=== PATIENT | male | born 1995 | race Caucasian/White ===

== ENCOUNTER 2017-05-30 15:55 | Inpatient (IN) | payer OTHER ==
[2017-05-30] MEDS ORDERED: ACETAMINOPHEN 1000 MG/100 ML VIAL (NON FORMULARY) IVPB ONE (16:47)
[2017-05-30] MEDS ORDERED: ACETAMINOPHEN INJECTION 100 ML IVPB ONE (16:50)
[2017-05-30 17:33] LABS: BASO % 0.2 % (0-2.0); EOS % 0.5 % (0-4.5); HEMATOCRIT 44.4 % (35.4-49); HEMOGLOBIN 14.2 GM/dL (11.7-16.9); LYMPH % 17.2 % (8-40); MCHC 32.1 g/dl (32.0-35.9); MEAN PLT VOLUME 9.2 fl (7.5-11.1); MONO % 6.1 % (3.8-10.2); PLATELET COUNT 232 K/MM3 (134-434); RBC 5.48 M/mm3 (4.00-5.60); RDW 13.7 % (11.9-15.9); WHITE BLOOD COUNT 15.2 K/mm3 (4.0-10.0)
[2017-05-30 17:41] LABS: URINE APPEARANCE CLEAR; URINE BILIRUBIN NEGATIVE (NEGATIVE); URINE BLOOD NEGATIVE (NEGATIVE); URINE COLOR LTYELLOW; URINE GLUCOSE (UA) NEGATIVE (NEGATIVE); URINE KETONE NEGATIVE (NEGATIVE); URINE LEUK ESTERASE NEGATIVE (NEGATIVE); URINE NITRITE NEGATIVE (NEGATIVE); URINE PROTEIN NEGATIVE (NEGATIVE)
[2017-05-30 17:49] LABS: INR 1.07 (0.82-1.09); PROTHROMBIN TIME (PATIENT) 12.1 SEC (9.98-11.88)
[2017-05-30 17:52] LABS: ACTIVATED PTT 30.3 SECONDS (26.9-34.4)
[2017-05-30 18:22] LABS: ALBUMIN 4.3 g/dl (3.4-5.0); ANION GAP 7 (8-16); BILIRUBIN,TOTAL 0.3 mg/dL (0.2-1.0); BLOOD UREA NITROGEN 14 mg/dL (7-18); CALCIUM 9.1 mg/dL (8.5-10.1); CHLORIDE 104 mmol/L (98-107); CO2 29 mmol/L (21-32); CREATININE 0.8 mg/dL (0.7-1.3); GLUCOSE,RANDOM 74 mg/dL (74-106); POTASSIUM 4.1 mmol/L (3.5-5.1); SGOT/AST 15 U/L (15-37); SGPT/ALT 26 U/L (12-78); SODIUM 140 mmol/L (136-145)
[2017-05-30 18:23] LABS: ALK PHOS 117 U/L (45-117)
--- NOTE | 2017-05-30 19:09 | PDOC ---
History of Present Illness - General Chief Complaint: Pain, Acute Stated Complaint: PAIN Time Seen by Provider: 05/30/17 16:18 - History of Present Illness Initial Comments: 05/30/17 19:08 "The patient is a 21 year old male, with no significant past medical history who presents to the emergency department with right sided abdominal pain for about 4 days. The patient reports his pain started as a diffuse tenderness but the pain is now localized at his RLQ. He ranks his pain a 6/10 with intermittent episodes of 10/10 in pain intensity. He also notes having subjective fevers. He denies any recent chills, headache or dizziness. He denies any recent nausea, vomit, diarrhea or constipation. He denies any recent chest pain or shortness of breath. He denies any recent dysuria, frequency, urgency or hematuria. No scrotal masses or pain. Allergies: NKA Past surgical history: None reported. Social History: Nonsmoker. Denies EtOH use and recreational drug use. " Past History - Past Medical History Allergies/Adverse Reactions: Allergies Allergy/AdvReac Type Severity Reaction Status Date / Time No Known Allergies Allergy Verified 05/30/17 16:03 Home Medications: Ambulatory Orders Oxycodone HCl/Acetaminophen [Percocet 5-325 mg Tablet] 1 tab PO Q4H PRN #20 tablet MDD 6 05/31/17 CVA: No COPD: No Thyroid Disease: No - Immunization History Immunization Up to Date: Yes - Suicide/Smoking/Psychosocial Hx Smoking Status: No Smoking History: Never smoked Have you smoked in the past 12 months: No Number of Cigarettes Smoked Daily: 0 Information on smoking cessation initiated: No Hx Alcohol Use: No Drug/Substance Use Hx: No Substance Use Type: None Hx Substance Use Treatment: No Review of Systems - Review of Systems Comments:: 05/30/17 19:37 "GENERAL/CONSTITUTIONAL: No chills. No weakness. HEAD, EYES, EARS, NOSE AND THROAT: No change in vision. No ear pain or discharge. No sore throat. CARDIOVASCULAR: No chest pain or shortness of breath. RESPIRATORY: No cough, wheezing, or hemoptysis. GASTROINTESTINAL: +RLQ pain. No nausea, vomiting, diarrhea or constipation. GENITOURINARY: No dysuria, frequency, or change in urination. MUSCULOSKELETAL: No joint or muscle swelling or pain. No neck or back pain. SKIN: No rash NEUROLOGIC: No headache, vertigo, loss of consciousness, or change in strength/ sensation. ENDOCRINE: No increased thirst. No abnormal weight change. HEMATOLOGIC/LYMPHATIC: No anemia, easy bleeding, or history of blood clots. ALLERGIC/IMMUNOLOGIC: No hives or skin allergy. " *Physical Exam - Vital Signs Last Vital Signs Temp Pulse Resp BP Pulse Ox 98.5 F 77 15 134/74 97 05/30/17 16:03 05/30/17 16:03 05/30/17 16:03 05/30/17 16:03 05/30/17 16:03 - Physical Exam Comments: 05/30/17 19:38 "GENERAL: Awake, alert, and fully oriented, in no acute distress HEAD: No signs of trauma EYES: PERRLA, EOMI, sclera anicteric, conjunctiva clear ENT: Auricles normal inspection, hearing grossly normal, nares patent, oropharynx clear without exudates. Moist mucosa NECK: Nontender, no stepoffs, Normal ROM, supple, no lymphadenopathy, JVD, or masses LUNGS: Breath sounds equal, clear to auscultation bilaterally. No wheezes, and no crackles HEART: Regular rate and rhythm, normal S1 and S2, no murmurs, rubs or gallops ABDOMEN: +RLQ tenderness, normoactive bowel sounds. No guarding, no rebound. No masses : no scrotal masses or tenderness EXTREMITIES: Normal range of motion, no edema. No clubbing or cyanosis. No cords, erythema, or tenderness NEUROLOGICAL: Cranial nerves II through XII intact. 5/5 strength and sensation in all extremities, Normal speech, normal gait SKIN: Warm, Dry, normal turgor, no rashes or lesions noted. " ED Treatment Course - LABORATORY CBC & Chemistry Diagram: 06/01/17 07:50 05/31/17 07:10 - ADDITIONAL ORDERS Additional order review: Laboratory Results 05/30/17 05/30/17 05/30/17 17:15 17:15 17:15 PT with INR INR PTT (Actin FS) Sodium 140 Potassium 4.1 Chloride 104 Carbon Dioxide 29 Anion Gap 7 L BUN 14 D Creatinine 0.8 Creat Clearance w eGFR > 60 Random Glucose 74 Lactic Acid 0.5 Calcium 9.1 Total Bilirubin 0.3 D AST 15 ALT 26 D Alkaline Phosphatase 117 Total Protein 8.0 Albumin 4.3 Lipase 89 Urine Color Urine Appearance Urine pH Ur Specific [place] Urine Protein Urine Glucose (UA) Urine Ketones Urine Blood Urine Nitrite Urine Bilirubin Urine Urobilinogen 05/30/17 05/30/17 17:15 17:15 PT with INR 12.10 H INR 1.07 PTT (Actin FS) 30.3 Sodium Potassium Chloride Carbon Dioxide Anion Gap BUN Creatinine Creat Clearance w eGFR Random Glucose Lactic Acid Calcium Total Bilirubin AST ALT Alkaline Phosphatase Total Protein Albumin Lipase Urine Color Ltyellow Urine Appearance Clear Urine pH 6.0 Ur Specific [place] 1.021 Urine Protein Negative Urine Glucose (UA) Negative Urine Ketones Negative Urine Blood Negative Urine Nitrite Negative Urine Bilirubin Negative Urine Urobilinogen 2.0 05/30/17 17:15 RBC 5.48 MCV 81.0 MCHC 32.1 RDW 13.7 MPV 9.2 Neutrophils % 76.0 Lymphocytes % 17.2 D Monocytes % 6.1 Eosinophils % 0.5 Basophils % 0.2 - RADIOLOGY Radiology Studies Ordered: Category Date Time Status ABDOMEN & PELVIS CT WITH CONTR [CT] Stat CT Scan 05/30/17 16:46 Ordered - Medications Given in the ED: ED Medications Discontinued Medications Generic Name Dose Route Start Last Admin Trade Name Freq PRN Reason Stop Dose Admin Acetaminophen 1,000 mg 05/30/17 16:47 05/30/17 17:10 Ofirmev Injection - IVPB 05/30/17 16:48 1,000 mg ONCE ONE Administration Medical Decision Making - Medical Decision Making 05/30/17 19:38 21 M with RLQ pain x 4 days. Concerning for acute appy. Pt with normal scrotal exam, no evidence of torsion. - Labs - CTAP 05/30/17 19:51 Pt signed out to oncoming attending, pending CT results and possible surgical consultation. Case discussed in detail with oncoming Emergency Physician including history, physical exam and ancillary studies. Oncoming Emergency Physician has assumed care for the patient and will complete the evaluation and treatment. Patient is aware of the plan. *DC/Admit/Observation/Transfer Diagnosis at time of Disposition: Acute appendicitis - Discharge Dispostion Disposition: HOME Condition at time of disposition: Improved - Prescriptions - Referrals - Patient Instructions - Post Discharge Activity - Attestations Physician Attestion: 06/01/17 18:03 I, Dr. Wilber Santana MD, attest that this document has been prepared under my direction and personally reviewed by me in its entirety. I further attest, that it accurately reflects all work, treatment, procedures and medical decision -making performed by me.
[2017-05-30] MEDS ORDERED: DEXTROSE 5%-LACTATED RINGERS 1,000 ML IV SCH (21:00)
--- NOTE | 2017-05-30 21:04 | PDOC ---
*Physical Exam - Vital Signs Last Vital Signs Temp Pulse Resp BP Pulse Ox 98.5 F 77 15 134/74 97 05/30/17 16:03 05/30/17 16:03 05/30/17 16:03 05/30/17 16:03 05/30/17 16:03 <IilranmolMiguel - Last Filed: 05/30/17 21:13> - Vital Signs Last Vital Signs Temp Pulse Resp BP Pulse Ox 98.5 F 77 15 134/74 97 05/30/17 16:03 05/30/17 16:03 05/30/17 16:03 05/30/17 16:03 05/30/17 16:03 <Kamaljit Green - Last Filed: 05/30/17 21:22> ED Treatment Course - LABORATORY CBC & Chemistry Diagram: 05/30/17 17:15 05/30/17 17:15 - ADDITIONAL ORDERS Additional order review: Laboratory Results 05/30/17 05/30/17 05/30/17 17:15 17:15 17:15 PT with INR INR PTT (Actin FS) Sodium Potassium Chloride Carbon Dioxide Anion Gap BUN Creatinine Creat Clearance w eGFR Random Glucose Lactic Acid 0.5 Calcium Total Bilirubin AST ALT Alkaline Phosphatase Total Protein Albumin Lipase 89 Urine Color Urine Appearance Urine pH Ur Specific [place] Urine Protein Urine Glucose (UA) Urine Ketones Urine Blood Urine Nitrite Urine Bilirubin Urine Urobilinogen Blood Type O POSITIVE Antibody Screen Negative 05/30/17 05/30/17 05/30/17 17:15 17:15 17:15 PT with INR 12.10 H INR 1.07 PTT (Actin FS) 30.3 Sodium 140 Potassium 4.1 Chloride 104 Carbon Dioxide 29 Anion Gap 7 L BUN 14 D Creatinine 0.8 Creat Clearance w eGFR > 60 Random Glucose 74 Lactic Acid Calcium 9.1 Total Bilirubin 0.3 D AST 15 ALT 26 D Alkaline Phosphatase 117 Total Protein 8.0 Albumin 4.3 Lipase Urine Color Ltyellow Urine Appearance Clear Urine pH 6.0 Ur Specific [place] 1.021 Urine Protein Negative Urine Glucose (UA) Negative Urine Ketones Negative Urine Blood Negative Urine Nitrite Negative Urine Bilirubin Negative Urine Urobilinogen 2.0 Blood Type Antibody Screen 05/30/17 17:15 RBC 5.48 MCV 81.0 MCHC 32.1 RDW 13.7 MPV 9.2 Neutrophils % 76.0 Lymphocytes % 17.2 D Monocytes % 6.1 Eosinophils % 0.5 Basophils % 0.2 - Medications Given in the ED: ED Medications Discontinued Medications Generic Name Dose Route Start Last Admin Trade Name Freq PRN Reason Stop Dose Admin Acetaminophen 1,000 mg 05/30/17 16:47 05/30/17 17:10 Ofirmev Injection - IVPB 05/30/17 16:48 1,000 mg ONCE ONE Administration <Miguel Wade - Last Filed: 05/30/17 21:13> - LABORATORY CBC & Chemistry Diagram: 05/30/17 17:15 05/30/17 17:15 - ADDITIONAL ORDERS Additional order review: Laboratory Results 05/30/17 05/30/17 05/30/17 17:15 17:15 17:15 PT with INR INR PTT (Actin FS) Sodium Potassium Chloride Carbon Dioxide Anion Gap BUN Creatinine Creat Clearance w eGFR Random Glucose Lactic Acid 0.5 Calcium Total Bilirubin AST ALT Alkaline Phosphatase Total Protein Albumin Lipase 89 Urine Color Urine Appearance Urine pH Ur Specific [place] Urine Protein Urine Glucose (UA) Urine Ketones Urine Blood Urine Nitrite Urine Bilirubin Urine Urobilinogen Blood Type O POSITIVE Antibody Screen Negative 05/30/17 05/30/17 05/30/17 17:15 17:15 17:15 PT with INR 12.10 H INR 1.07 PTT (Actin FS) 30.3 Sodium 140 Potassium 4.1 Chloride 104 Carbon Dioxide 29 Anion Gap 7 L BUN 14 D Creatinine 0.8 Creat Clearance w eGFR > 60 Random Glucose 74 Lactic Acid Calcium 9.1 Total Bilirubin 0.3 D AST 15 ALT 26 D Alkaline Phosphatase 117 Total Protein 8.0 Albumin 4.3 Lipase Urine Color Ltyellow Urine Appearance Clear Urine pH 6.0 Ur Specific [place] 1.021 Urine Protein Negative Urine Glucose (UA) Negative Urine Ketones Negative Urine Blood Negative Urine Nitrite Negative Urine Bilirubin Negative Urine Urobilinogen 2.0 Blood Type Antibody Screen 05/30/17 17:15 RBC 5.48 MCV 81.0 MCHC 32.1 RDW 13.7 MPV 9.2 Neutrophils % 76.0 Lymphocytes % 17.2 D Monocytes % 6.1 Eosinophils % 0.5 Basophils % 0.2 - Medications Given in the ED: ED Medications Discontinued Medications Generic Name Dose Route Start Last Admin Trade Name Freq PRN Reason Stop Dose Admin Acetaminophen 1,000 mg 05/30/17 16:47 05/30/17 17:10 Ofirmev Injection - IVPB 05/30/17 16:48 1,000 mg ONCE ONE Administration <Kamaljit Green - Last Filed: 05/30/17 21:22> Medical Decision Making - Medical Decision Making 05/30/17 20:[address] Weir's office placed. The answering machine was not set up, no service was available. 05/30/17 20:[address] Weir's office placed. The answering machine was not set up, no service was available. 05/30/17 20:[address] Weir's office placed. The answering machine was not set up, no service was available. Will try Dr. Diaz. 05/30/17 21:[address] Diaz's office placed. Awaiting call back. 05/30/17 21:10 Dr. Diaz's service called back. Dr. Diaz is not fitness sales consultant, will try Dr. Delong. 05/30/17 21:[address] Delong's service placed, connected to Dr. Delong directly. Dr. Delong will operate but will not admit. <Miguel Wade - Last Filed: 05/30/17 21:13> *DC/Admit/Observation/Transfer <Miguel Wade - Last Filed: 05/30/17 21:13> - Discharge Dispostion Admit: Yes <Kamaljit Green - Last Filed: 05/30/17 21:22> Diagnosis at time of Disposition: Acute appendicitis - Discharge Dispostion Condition at time of disposition: Stable
[2017-05-30] MEDS ORDERED: METRONIDAZOLE 500 MG PREMIXED 500 MG/100 ML MG IVPB ONE ×2 (21:18→21:28)
[2017-05-30] MEDS ORDERED: LEVOFLOXACIN 500 MG IVPB 500 MG/100 ML BAG IVPB ONE ×2 (21:18→21:28)
[2017-05-30] MEDS ORDERED: morphine CARPU-JECT 8 MG/1 ML DISP.SYRIN IVPUSH PRN (21:53)
--- NOTE | 2017-05-30 21:54 | HP ---
CHIEF COMPLAINT: Abdominal pain PCP: none HISTORY OF PRESENT ILLNESS: This is a 21 year old male with no past medical or surgical history who presented to the ED with abdominal pain, RLQ. Pt states that he has had the pain for about 3 days but today it became unbearable. He denies any nausea or vomiting. ER course was notable for: (1) WBC 15.2 (2) CT a/p c/w appendicitis Recent Travel: pt denies PAST MEDICAL HISTORY: none PAST SURGICAL HISTORY: none Social History: Smoking: pt denies Alcohol: pt denies Drugs: pt denies Family History: mother alive, with HTN, hypothyroid, HLD father alive and well one brother with Crohn's disease Allergies No Known Allergies Allergy (Verified 05/30/17 16:03) HOME MEDICATIONS: 3 Medication Instructions Recorded NK [No Known Home Medication] 05/30/17 REVIEW OF SYSTEMS CONSTITUTIONAL: Absent: fever, chills, diaphoresis, generalized weakness, malaise, loss of appetite, weight change HEENT: Absent: rhinorrhea, nasal congestion, throat pain, throat swelling, difficulty swallowing, mouth swelling, ear pain, eye pain, visual changes CARDIOVASCULAR: Absent: chest pain, syncope, palpitations, irregular heart rate, lightheadedness , peripheral edema RESPIRATORY: Absent: cough, shortness of breath, dyspnea with exertion, orthopnea, wheezing, stridor, hemoptysis GASTROINTESTINAL: Present: abdominal pain Absent: abdominal distension, nausea, vomiting, diarrhea, constipation, melena, hematochezia GENITOURINARY: Absent: dysuria, frequency, urgency, hesitancy, hematuria, flank pain, genital pain MUSCULOSKELETAL: Absent: myalgia, arthralgia, joint swelling, back pain, neck pain SKIN: Absent: rash, itching, pallor HEMATOLOGIC/IMMUNOLOGIC: Absent: easy bleeding, easy bruising, lymphadenopathy, frequent infections ENDOCRINE: Absent: unexplained weight gain, unexplained weight loss, heat intolerance, cold intolerance NEUROLOGIC: Absent: headache, focal weakness or paresthesias, dizziness, unsteady gait, seizure, mental status changes, bladder or bowel incontinence PSYCHIATRIC: Absent: anxiety, depression, suicidal or homicidal ideation, hallucinations. PHYSICAL EXAMINATION Vital Signs - 24 hr 3 05/30/17 05/30/17 16:03 21:17 Temperature 98.5 F 98.6 F Pulse Rate 77 Pulse Rate [ 68 Apical] Respiratory 15 16 Rate Blood Pressure 134/74 Blood Pressure 136/69 [Right Arm] O2 Sat by Pulse 97 100 Oximetry (%) GENERAL: Awake, alert, and fully oriented, in no acute distress. HEAD: Normal with no signs of trauma. EYES: Pupils equal, round and reactive to light, extraocular movements intact, sclera anicteric, conjunctiva clear. No lid lag. EARS, NOSE, THROAT: Ears normal, nares patent, oropharynx clear without exudates. Moist mucous membranes. NECK: Normal range of motion, supple without lymphadenopathy, JVD, or masses. LUNGS: Breath sounds equal, clear to auscultation bilaterally. No wheezes, and no crackles. No accessory muscle use. HEART: Regular rate and rhythm, normal S1 and S2 without murmur, rub or gallop. ABDOMEN: Soft, not distended, normoactive bowel sounds, no guarding, no rebound , no masses. No hepatomegaly or splenomegaly. + TTP RLQ MUSCULOSKELETAL: Normal range of motion at all joints. No bony deformities or tenderness. No CVA tenderness. UPPER EXTREMITIES: 2+ pulses, warm, well-perfused. No cyanosis. No clubbing. No peripheral edema. LOWER EXTREMITIES: 2+ pulses, warm, well-perfused. No calf tenderness. No peripheral edema. NEUROLOGICAL: Cranial nerves II-XII intact. Normal speech. Normal gait. PSYCHIATRIC: Cooperative. Good eye contact. Appropriate mood and affect. SKIN: Warm, dry, normal turgor, no rashes or lesions noted, normal capillary refill. Laboratory Results - last 24 hr 3 05/30/17 05/30/17 05/30/17 17:15 17:15 17:15 WBC 15.2 H RBC 5.48 Hgb 14.2 Hct 44.4 MCV 81.0 MCH 26.0 MCHC 32.1 RDW 13.7 Plt Count 232 MPV 9.2 Absolute Neuts (auto) 11.5 L Absolute Lymphs (auto) 2.6 L Absolute Monos (auto) 0.9 L Absolute Eos (auto) 0.1 Absolute Basos (auto) 0.0 L Neutrophils % 76.0 Lymphocytes % 17.2 D Monocytes % 6.1 Eosinophils % 0.5 Basophils % 0.2 PT with INR 12.10 H INR 1.07 PTT (Actin FS) 30.3 Sodium Potassium Chloride Carbon Dioxide Anion Gap BUN Creatinine Creat Clearance w eGFR Random Glucose Lactic Acid Calcium Total Bilirubin AST ALT Alkaline Phosphatase Total Protein Albumin Lipase Urine Color Ltyellow Urine Appearance Clear Urine pH 6.0 Ur Specific [place] 1.021 Urine Protein Negative Urine Glucose (UA) Negative Urine Ketones Negative Urine Blood Negative Urine Nitrite Negative Urine Bilirubin Negative Urine Urobilinogen 2.0 Blood Type Antibody Screen 3 05/30/17 05/30/17 05/30/17 17:15 17:15 17:15 WBC RBC Hgb Hct MCV MCH MCHC RDW Plt Count MPV Absolute Neuts (auto) Absolute Lymphs (auto) Absolute Monos (auto) Absolute Eos (auto) Absolute Basos (auto) Neutrophils % Lymphocytes % Monocytes % Eosinophils % Basophils % PT with INR INR PTT (Actin FS) Sodium 140 Potassium 4.1 Chloride 104 Carbon Dioxide 29 Anion Gap 7 L BUN 14 D Creatinine 0.8 Creat Clearance w eGFR > 60 Random Glucose 74 Lactic Acid 0.5 Calcium 9.1 Total Bilirubin 0.3 D AST 15 ALT 26 D Alkaline Phosphatase 117 Total Protein 8.0 Albumin 4.3 Lipase 89 Urine Color Urine Appearance Urine pH Ur Specific [place] Urine Protein Urine Glucose (UA) Urine Ketones Urine Blood Urine Nitrite Urine Bilirubin Urine Urobilinogen Blood Type O POSITIVE Antibody Screen Negative CT abdomen and pelvis with IV contrast. INDICATION: Right lower quadrant abdominal pain. TECHNIQUE: Contrast enhanced CT of the abdomen and pelvis with oral contrast, following intravenous administration of 90 mL of Omnipaque 350 contrast. COMPARISON: None available. FINDINGS: There is linear scarring versus atelectasis in the right middle lobe. The heart is not enlarged. The liver is normal in size and contour. The gallbladder is not contracted. There is no biliary ductal dilatation. The pancreas is unremarkable. Normal size spleen, with no focal lesions. No mass in the adrenal glands. Normal size kidneys with symmetric enhancement. No hydroureteronephrosis. Normal caliber abdominal aorta. No pathologically enlarged retroperitoneal lymph nodes by size criteria. The appendix is mildly dilated measuring 7-8 mm with mucosal hyperenhancement, most prominent in the distal third of the appendix with mild periappendiceal fat stranding. There are multiple prominent right lower quadrant mesenteric lymph nodes which are nonspecific, but may be reactive. No dilated loops of large or small bowel. There are diverticula along the descending and sigmoid colon with no evidence of diverticulitis. There is no free intraperitoneal air, ascites or drainable collection within the abdomen or pelvis. The urinary bladder is unremarkable. The prostate gland is not enlarged. There are no pathologically enlarged pelvic sidewall lymph nodes by size criteria. No evidence of acute fracture in the visualized osseous structures. IMPRESSION: Findings suggestive of early acute appendicitis as described above, with no evidence of perforation. Please correlate clinically Reported By: Galdino Shetty DO 05/30/172052 ASSESSMENT/PLAN: 21yM with no past medical or surgical history presented to the ED with RLQ pain. Acute appendicitis - cont levaquin and flagyl - surgery Dr. Delong contacted by ED, will see pt in am - D5LR@125cc/hr DVT PPX - deferred, anticipated LOS less than 48h FEN - D5LR @ 125cc/hr - bmp in am - NPO Dispo: pt currently requires inpatient management of his emergent condition. may go home tomorrow after surgery if cleared by surgical team. Visit type - Emergency Visit Emergency Visit: Yes ED Registration Date: 05/30/17 Care time: The patient presented to the Emergency Department on the above date and was hospitalized for further evaluation of their emergent condition. - New Patient This patient is new to me today: Yes Date on this admission: 05/30/17 - Critical Care Critical Care patient: No
[2017-05-30] MEDS ORDERED: ONDANSETRON 4 MG/2 ML VIAL IVPUSH PRN (21:56)
[2017-05-30] MEDS ORDERED: morphine CARPU-JECT 10 MG/1 ML DISP.SYRIN ONE (22:35)
[2017-05-30] MEDS ORDERED: ONDANSETRON 4 MG/2 ML VIAL ONE (22:35)
[2017-05-31] MEDS: METRONIDAZOLE 500 MG PREMIXED 500 MG/100 ML MG IVPB SCH ×2 (02:47→09:16)
[2017-05-31 05:50] VITALS: BMI 27.8
[2017-05-31 07:33] LABS: BASO % 0.4 % (0-2.0); EOS % 2.1 % (0-4.5); HEMATOCRIT 41.8 % (35.4-49); HEMOGLOBIN 13.3 GM/dL (11.7-16.9); LYMPH % 29.4 % (8-40); MCH 25.6 pg (25.7-33.7); MCHC 31.8 g/dl (32.0-35.9); MEAN CELL VOLUME 80.4 fl (80-96); MEAN PLT VOLUME 8.7 fl (7.5-11.1); MONO % 9.9 % (3.8-10.2); NEUT % 58.2 % (42.8-82.8); PLATELET COUNT 208 K/MM3 (134-434); RBC 5.21 M/mm3 (4.00-5.60); RDW 13.6 % (11.9-15.9); WHITE BLOOD COUNT 7.5 K/mm3 (4.0-10.0)
[2017-05-31 08:05] LABS: ANION GAP 6 (8-16); BLOOD UREA NITROGEN 11 mg/dL (7-18); CALCIUM 8.7 mg/dL (8.5-10.1); CHLORIDE 102 mmol/L (98-107); CO2 33 mmol/L (21-32); CREATININE 0.8 mg/dL (0.7-1.3); GLUCOSE,RANDOM 91 mg/dL (74-106); MAGNESIUM 1.9 mg/dL (1.8-2.4); PHOSPHOROUS 4.2 mg/dL (2.5-4.9); POTASSIUM 4.2 mmol/L (3.5-5.1); SODIUM 141 mmol/L (136-145)
--- NOTE | 2017-05-31 08:54 | CONSULT ---
- Consultation REQUESTING PROVIDER: Wilber Delong - General Surgery CONSULT REQUEST: We have been asked to surgically evaluate this patient for confirmed acute appendicitis. PCP: Lalita Velazquez NP HPI: Called to [place] 21yo male without any PMHx, comes to [facility] ED w/ c/o RLQ abd pain x3 days. While in ED he had an ABD CT which confirmed acute appy. Denies n/ v/f/c, CP, SOB. Denies flank pain, hematuria or chage in bowel habits. Denies trauma. PMHx: Denies. PSHx: Denies. Home Meds: Denies. Allergies: Denies. ROS: All systems reviewed and considered negative except for what's in HPI. PHYSICAL EXAM: GENERAL: alert. nad. LUNGS: CTA bilat anteriorly HEART: RRR ABDOMEN: + McBurney's point tenderness MUSCULOSKELETAL: No CVAT bilat UE: 2+ pulses, warm, well-perfused. No cyanosis. Cap refill <2 seconds. No peripheral edema. LE: 2+ pulses, warm, well-perfused. No calf tenderness. No peripheral edema. PSYCH: Cooperative. Good eye contact. Appropriate mood and affect. Last Vital Signs Temp Pulse Resp BP Pulse Ox 97.6 F 55 L 17 123/72 97 05/31/17 06:00 05/31/17 08:50 05/31/17 08:50 05/31/17 08:50 05/31/17 05:57 CBC, BMP 05/31/17 07:10 05/31/17 07:10 INR, PTT INR 1.07 (0.82-1.09) 05/30/17 17:15 Blood Type Blood Type O POSITIVE 05/30/17 17:15 Hepatic Panel Total Bilirubin 0.3 mg/dL (0.2-1.0) D 05/30/17 17:15 AST 15 U/L (15-37) 05/30/17 17:15 ALT 26 U/L (12-78) D 05/30/17 17:15 Alkaline Phosphatase 117 U/L (45-117) 05/30/17 17:15 Albumin 4.3 g/dl (3.4-5.0) 05/30/17 17:15 Urine Urine Color Ltyellow 05/30/17 17:15 Urine Appearance Clear 05/30/17 17:15 Urine pH 6.0 (5.0-8.0) 05/30/17 17:15 Ur Specific [place] 1.021 (1.001-1.035) 05/30/17 17:15 Urine Protein Negative (NEGATIVE) 05/30/17 17:15 Urine Glucose (UA) Negative (NEGATIVE) 05/30/17 17:15 Urine Ketones Negative (NEGATIVE) 05/30/17 17:15 Urine Blood Negative (NEGATIVE) 05/30/17 17:15 Urine Nitrite Negative (NEGATIVE) 05/30/17 17:15 Urine Bilirubin Negative (NEGATIVE) 05/30/17 17:15 Ur Leukocyte Esterase Negative (NEGATIVE) 05/30/17 17:15 Problem List - Problems (1) Acute appendicitis Assessment/Plan: NPO/IVF GI/DVT ppx Going to OR today for lap appy possible open. Risks, benefits, alternatives have been discussed with patient. Understands and wishes to proceed with surgery. Medical optimization Consent in chart Above discussed with Dr. Delong and agrees. Code(s): K35.80 - UNSPECIFIED ACUTE APPENDICITIS Visit type - Case Type Case Type: ED Admission - Emergency Emergency Visit: Yes ED Registration Date: 05/30/17 Care time: The patient presented to the Emergency Department on the above date and was hospitalized for further evaluation of their emergent condition. - New patient This patient is new to me today: Yes Date on this admission: 05/31/17
--- NOTE | 2017-05-31 09:13 | PN ---
Progress Note (short form) - Note Progress Note: Subjective: The patient was seen and examined at the bedside he has complaints of RLQ pain that has improved. Current Medications Generic Name Dose Route Start Last Admin Trade Name Freq PRN Reason Stop Dose Admin Dextrose/Lactated Ringer's 1,000 mls @ 125 mls/hr 05/30/17 21:00 05/30/17 21: 17 D5-Lr - IV 125 mls/hr ASDIR KAUSHAL Administration Metronidazole 500 mg in 100 mls @ 100 mls/hr 05/31/17 03:00 05/31/17 02:47 Flagyl 500mg Premixed Ivpb - IVPB 100 mls/hr Q6H-IV KAUSHAL Administration Levofloxacin 500 mg in 100 mls @ 100 mls/hr 05/31/17 22:00 Levaquin 500 Mg Premixed Ivpb - IVPB 05/31/17 22:01 HS KAUSHAL Morphine Sulfate 2 mg 05/30/17 21:53 05/30/17 22:40 Morphine Sulfate IVPUSH 2 mg Q3H PRN Administration PAIN Ondansetron HCl 4 mg 05/30/17 21:56 05/30/17 22:40 Zofran Injection IVPUSH 4 mg Q6H PRN Administration NAUSEA Objective: Vital Signs Period Temp Pulse Resp BP Sys/Bernabe Pulse Ox Last 24 Hr 97.6 F-98.6 F 54-77 15-17 111-137/61-74 97-100 Physical Exam: General: NAD, A&Ox3 Lungs: CTA bilaterally Heart: RRR, S1S2 Abd: Soft, mile RLQ tenderness, non-distended Ext: Warm, well-perfused. 2+ DP/PT bilaterally Neuro: CN 2-12 intact CBCD WBC 7.5 K/mm3 (4.0-10.0) D 05/31/17 07:10 RBC 5.21 M/mm3 (4.00-5.60) 05/31/17 07:10 Hgb 13.3 GM/dL (11.7-16.9) 05/31/17 07:10 Hct 41.8 % (35.4-49) 05/31/17 07:10 MCV 80.4 fl (80-96) 05/31/17 07:10 MCHC 31.8 g/dl (32.0-35.9) L 05/31/17 07:10 RDW 13.6 % (11.9-15.9) 05/31/17 07:10 Plt Count 208 K/MM3 (134-434) 05/31/17 07:10 MPV 8.7 fl (7.5-11.1) 05/31/17 07:10 CMP Sodium 141 mmol/L (136-145) 05/31/17 07:10 Potassium 4.2 mmol/L (3.5-5.1) 05/31/17 07:10 Chloride 102 mmol/L (98-107) 05/31/17 07:10 Carbon Dioxide 33 mmol/L (21-32) H 05/31/17 07:10 Anion Gap 6 (8-16) L 05/31/17 07:10 BUN 11 mg/dL (7-18) D 05/31/17 07:10 Creatinine 0.8 mg/dL (0.7-1.3) 05/31/17 07:10 Creat Clearance w eGFR > 60 (>60) 05/30/17 17:15 Random Glucose 91 mg/dL (74-106) D 05/31/17 07:10 Calcium 8.7 mg/dL (8.5-10.1) 05/31/17 07:10 Total Bilirubin 0.3 mg/dL (0.2-1.0) D 05/30/17 17:15 AST 15 U/L (15-37) 05/30/17 17:15 ALT 26 U/L (12-78) D 05/30/17 17:15 Alkaline Phosphatase 117 U/L (45-117) 05/30/17 17:15 Total Protein 8.0 g/dl (6.4-8.2) 05/30/17 17:15 Albumin 4.3 g/dl (3.4-5.0) 05/30/17 17:15 Imaging: CTAP with findings suggestive of early acute appendicitis with no evidence of perforation Assessment: This is a 21 year old male with no PMHx who presented to the ED with RLQ pain Plan: 1) Acute appendicitis - NPO - For appendectomy today - Continue Flagyl and Ceftriaxone - Pain management - Appreciate surgical consult 2) F/E/N: - NPO - Monitor electrolytes 3) Prophylaxis: - Hold all chemical DVT prophylaxis for surgery today 4) Dispo: - Requires continued inpatient care CODE STATUS: FULL CODE Visit type - Emergency Visit Emergency Visit: Yes ED Registration Date: 05/30/17 Care time: The patient presented to the Emergency Department on the above date and was hospitalized for further evaluation of their emergent condition. - New Patient This patient is new to me today: Yes Date on this admission: 05/31/17 - Critical Care Critical Care patient: No
[2017-05-31] MEDS ORDERED: MIDAZOLAM HCL 2 MG/2 ML SINGLE DOSE VIAL ONE (10:15)
[2017-05-31] MEDS ORDERED: DESFLURANE GAS 240 ML BOTTLE IH ONE (10:17)
[2017-05-31] MEDS ORDERED: BUPIVACAINE HCL/PF 0.5% (5MG/ML) 10 ML VIAL ONE (10:25)
[2017-05-31] MEDS ORDERED: ROCURONIUM BROMIDE 50 MG/5 ML VIAL ONE (10:33)
[2017-05-31] MEDS ORDERED: PROPOFOL 20 ML ONE ×2 (10:33)
[2017-05-31] MEDS ORDERED: fentaNYL CITRATE 250 MCG/5 ML VIAL ONE (10:34)
[2017-05-31] MEDS ORDERED: KETOROLAC TROMETHAMINE 30 MG/1 ML VIAL ONE (10:34)
[2017-05-31] MEDS ORDERED: DEXAMETHASONE SOD PHOSPHATE 4 MG/1 ML VIAL ONE (10:34)
[2017-05-31] MEDS ORDERED: GLYCOPYRROLATE 0.2 MG/1 ML VIAL ONE ×2 (11:27)
[2017-05-31] MEDS ORDERED: NEOSTIGMINE METHYLSULFATE 0.5 MG/ML - 10 ML MDV ONE (11:27)
--- NOTE | 2017-05-31 11:29 | OP ---
Operative Note - Note: Operative Date: 05/31/17 Pre-Operative Diagnosis: acute appendicitis Operation: laparoscopic appendectomy Findings: acute appendicitis Post-Operative Diagnosis: Same as Pre-op Surgeon: Wilber Delong Snow Shoveler: Ranjan Felipe Anesthesiologist/GROUP HOME COUNSELOR: Nino Pearson Anesthesia: General Specimens Removed: appendix Estimated Blood Loss (mls): 5
[2017-05-31] MEDS ORDERED: BUPIVACAINE HCL/PF 0.5% (5MG/ML) 10 ML VIAL IJ ONE ×2 (11:31)
--- NOTE | 2017-05-31 11:42 | SURG ---
Surgery Physical Therapy Coordinator Note Physical Therapy Coordinator: Ranjan Felipe PA-C Date of Service: 05/31/17 Diagnosis: Acute appendicitis Procedure: Laparoscopic appendectomy I was present for the entirety of the operative procedure. For further detail, please refer to operative report. Visit type - Case Type Case Type: ED Admission - Emergency Emergency Visit: Yes ED Registration Date: 05/31/17 Care time: The patient presented to the Emergency Department on the above date and was hospitalized for further evaluation of their emergent condition.
[2017-05-31] MEDS ORDERED: ONDANSETRON 4 MG/2 ML VIAL IVPUSH PRN ×2 (11:49→12:04)
[2017-05-31] MEDS ORDERED: PROMETHAZINE HCL 25 MG/1 ML VIAL IVPUSH PRN (11:49)
[2017-05-31] MEDS ORDERED: LACTATED RINGERS SOLUTION 1,000 ML IV SCH (12:00)
[2017-05-31] MEDS ORDERED: morphine CARPU-JECT 8 MG/1 ML DISP.SYRIN IVPUSH PRN (12:04)
[2017-05-31] MEDS: DEXTROSE 5%-LACTATED RINGERS 1,000 ML IV SCH ×3 (13:00→21:23)
--- NOTE | 2017-05-31 13:41 | EKG ---
Test Reason : Blood Pressure : / mmHG Vent. Rate : 067 BPM Atrial Rate : 067 BPM P-R Int : 166 ms QRS Dur : 084 ms QT Int : 378 ms P-R-T Axes : 045 019 020 degrees QTc Int : 399 ms NORMAL SINUS RHYTHM NORMAL ECG WHEN COMPARED WITH ECG OF 30-MAY-2017 16:54, NO SIGNIFICANT CHANGE WAS FOUND Confirmed by CHICHO MOJICA MD ([id number]) on 05/31/2017 1:41:31 PM Referred By: Confirmed By:CHICHO MOJICA MD
--- NOTE | 2017-05-31 13:50 | EKG ---
Test Reason : Blood Pressure : / mmHG Vent. Rate : 071 BPM Atrial Rate : 071 BPM P-R Int : 162 ms QRS Dur : 084 ms QT Int : 370 ms P-R-T Axes : 036 -04 016 degrees QTc Int : 402 ms NORMAL SINUS RHYTHM NORMAL ECG Confirmed by CHICHO MOJICA MD ([id number]) on 05/31/2017 1:49:48 PM Referred By: Confirmed By:CHICHO MOJICA MD
[2017-05-31] MEDS: oxyCODONE HCL 5 MG TABLET PO PRN ×2 (17:12→21:20)
[2017-05-31] MEDS ORDERED: LEVOFLOXACIN 500 MG IVPB 500 MG/100 ML BAG IVPB SCH (22:00)
[2017-06-01] MEDS: DEXTROSE 5%-LACTATED RINGERS 1,000 ML IV SCH (05:16)
[2017-06-01] MEDS: oxyCODONE HCL 5 MG TABLET PO PRN (06:59)
[2017-06-01 08:29] LABS: HEMATOCRIT 39.4 % (35.4-49); HEMOGLOBIN 12.5 GM/dL (11.7-16.9); MCH 25.4 pg (25.7-33.7); MCHC 31.7 g/dl (32.0-35.9); MEAN CELL VOLUME 80.2 fl (80-96); MEAN PLT VOLUME 8.8 fl (7.5-11.1); PLATELET COUNT 205 K/MM3 (134-434); RBC 4.91 M/mm3 (4.00-5.60); RDW 13.5 % (11.9-15.9); WHITE BLOOD COUNT 8.6 K/mm3 (4.0-10.0)
--- NOTE | 2017-06-01 10:37 | PN ---
Progress Note (short form) - Note Progress Note: anesthesia post op note POD#1. S/P Appendectomy under GA. VSS. No apparent post anesthesia complications.Signed off.
--- NOTE | 2017-06-01 10:39 | DS ---
Physical Exam: HOSPITAL COURSE: Date of Admission:05/31/17 Date of Discharge: 06/01/17 Discharge Summary Reason For Visit: ACUTE APPENDICITIS Current Active Problems Acute appendicitis (Acute) Condition: Improved - Instructions Diet, Activity, Other Instructions: Dr. Delong Discharge Instructions Dear DAVIDA GARLAND, Post Operative Instructions Physical activity Resume your normal everyday activity as tolerated no heavy lifting or exercise until seen by your surgeon. You may walk unlimited amounts of and climb stairs. You may resume driving the car when you feel safe and comfortable behind the wheel. Wound care If you have a bandage, leave it on, and keep dry for 48 - 72 hours. After that time discard the outer bandage. If there are tapes on the skin under the outer bandage, leave them in place. They will peel off in the next 7 to 10 days. Do Not peel them off. You may shower 2 days after surgery. If there are tapes present on the skin, they can get wet. Diet There are no dietary restrictions. Eat healthy, high-fiber foods. Drink 6 to 8 glasses of liquid each day. This will assist in keeping your bowels are regular. Pain management You may take Tylenol or acetaminophen or Ibuprofen (for example, Motrin, Advil etc.) Any pain prescription medication ordered should be taken as prescribed for moderate to severe pain. Call Dr. Delong for any of the following: Severe pain not relieved by medication Fever of 101 or higher Excessive bleeding or drainage on dressing Inability to urinate Call the office at [phone] for a post operative appointment in 7 - 10 days. Disposition: HOME - Home Medications Comprehensive Discharge Medication List: Ambulatory Orders Oxycodone HCl/Acetaminophen [Percocet 5-325 mg Tablet] 1 tab PO Q4H PRN #20 tablet MDD 6 05/31/17 This patient is new to me today: Yes Date on this admission: 06/01/17 Emergency Visit: Yes ED Registration Date: 05/31/17 Care time: The patient presented to the Emergency Department on the above date and was hospitalized for further evaluation of their emergent condition. Critical Care patient: No - Discharge Referral Referred to [facility] No
[2017-06-01 10:41] VITALS: BP 127/60; PULSE 61; TEMP 98.7
--- NOTE | 2017-06-01 11:14 | PN ---
Progress Note (short form) - Note Progress Note: Attending Surgeon POD #1 No c/o; tolerated regular diet VSS AF abdomen-soft; flat and non tender; port sites c/d/i WBC-nl IMP:doing well PLAN: D/C to office f/u next week; patient instructed on do's and dont's Wilber Delong MD FACS
--- NOTE | 2017-06-02 17:57 | OP ---
DATE OF OPERATION: 05/31/2017 PREOPERATIVE DIAGNOSIS: Acute appendicitis. POSTOPERATIVE DIAGNOSIS: Acute appendicitis. PROCEDURE: Laparoscopic appendectomy. SURGEON: Wilber Delong MD PHYSICAL TRAINER: KAMINI Rodríguez ANESTHESIA: General. OPERATIVE FINDINGS: Acute suppurative appendicitis. The rest of the findings were unremarkable. PROCEDURE: The patient was placed on the operating table in the supine position , and after induction of general anesthesia, the patient's abdomen was prepped with ChloraPrep and draped in sterile fashion. A timeout was taken and then pneumoperitoneum established using a Veress needle above the umbilicus to an intraabdominal pressure of 15 mmHg. A 5-mm port was subsequently placed and laparoscopy carried out and the previously-noted findings were observed. A suprapubic 12-mm port and left lower quadrant 5-mm port were placed, and the appendix was identified at the confluence of the 3 taenia of the right colon. It was grasped and the mesoappendix was serially divided using the LigaSure device. Once the base of the appendix was clearly identified and the mesoappendix divided. A blue load Endo JASON was fired across the base of the appendix. Hemostasis was noted to be good and then the appendix was placed in a specimen retrieval bag and brought out through the suprapubic port. Pneumoperitoneum was reestablished, hemostasis verified, and then all ports were removed under laparoscopic vision without evidence of bleeding from the port sites. The pneumoperitoneum was released as well, and all port sites were infiltrated with 0.5% Marcaine without epinephrine. The defect at the suprapubic port was closed with a 0 Vicryl [id number] suture. All skin edges were reapproximated with 4-0 Monocryl in a subcuticular fashion, followed by Steri-Strips and band-aid dressings. The procedure was terminated at this point and the patient aroused from general anesthesia and transferred to the post- anesthesia care unit in stable condition, awake and alert. Estimated blood loss: 5 mL. Replacements: Crystalloid. Drains: None. Specimen: Appendix to Pathology. I, Wilber Delong, was physically present in the operating room from the time the patient was placed on the operating table until he was transferred to the post-anesthesia care unit in my accompaniment. MD ALLISON Kulkarni/[id number] MTDD
--- NOTE | 2017-06-04 15:09 | PATH ---
Surgical Pathology Report Patient Name: DAVIDA GARLAND [facility]. Rec. #: [id number] /Age/Gender: 1995 (Age: 21) / M Account: [id number] Location: [address] [place] [address] Taken: 05/31/2017 Received: 05/31/2017 Reported: 06/04/2017 Physicians: MD Wilber Davis M.D. Specimen(s) Received APPENDIX Clinical History Acute appendicitis Final Diagnosis APPENDIX, LAPAROSCOPIC APPENDECTOMY: MILD ACUTE AND CHRONIC APPENDICITIS. Electronically Signed Kristin Rueda M.D. Gross Description Received in formalin, labeled "appendix," is a 6 cm. in length vermiform appendix with a stapled margin of resection and moderate attached fat. The serosa is pink-zuniga and smooth. Sectioning reveals a focally hemorrhagic lumen. The wall of the appendix averages 0.1 cm. in thickness. Nut Culler sections are submitted in one cassette. 05/31/201705/31/2017
== END 2017-06-01 14:31 | disposition home or self-care (01) | DRG 225 ==
LOC: JER 15:55 → JERBED 21:19 → J5S 05-31 01:46 → OBSVTOIN 05-31 11:14 → J5S 05-31 13:26
PROVIDERS: ADMIT Internal Medicine; ATTEND Nurse Practitioner Acute Care
PROC: 0DTJ4ZZ Resection of Appendix, Percutaneous Endoscopic Approach (ICD-10-PCS; principal; 2017-05-31 09:30)
DX: K35.89 Other acute appendicitis (principal); J98.11 Atelectasis
CPT/HCPCS: 36415; 74177-TC; 80048; 80053; 81003; 82550; 83605; 83690; 83735; 84100; 84484; 85025; 85027; 85610; 85730; 86850; 86900; 86901; 88304-TC; 93005; 93010; 94760; 99284-25; G0378; Q9967

== ENCOUNTER 2020-08-03 12:31 | Emergency (ER) | payer OTHER ==
[2020-08-03 12:38] VITALS: BP 127/74; PULSE 70; TEMP 98.1; BMI 30.2
[2020-08-03] MEDS ORDERED: SODIUM CHLORIDE 0.9% 500 ML INFUS.BAG IV ONE (14:21)
[2020-08-03 15:28] LABS: BASO % 0.5 % (0-2.0); EOS % 1.8 % (0-4.5); HEMATOCRIT 44.1 % (35.4-49); HEMOGLOBIN 14.8 GM/dL (11.7-16.9); LYMPH % 35.6 % (8-40); MCH 27.1 pg (25.7-33.7); MCHC 33.5 g/dl (32.0-35.9); MEAN CELL VOLUME 80.8 fl (80-96); MEAN PLT VOLUME 8.8 fl (7.5-11.1); MONO % 9.6 % (3.8-10.2); NEUT % 52.5 % (42.8-82.8); PLATELET COUNT 282 K/MM3 (134-434); RBC 5.46 M/mm3 (4.00-5.60); RDW 13.3 % (11.9-15.9); WHITE BLOOD COUNT 8.3 K/mm3 (4.0-10.0)
[2020-08-03 15:40] LABS: POTASSIUM 4.4 mmol/L (3.5-5.1)
[2020-08-03 15:42] LABS: ALBUMIN 4.1 g/dl (3.4-5.0); BLOOD UREA NITROGEN 15.5 mg/dL (7-18); CALCIUM 9.5 mg/dL (8.5-10.1)
[2020-08-03 15:45] LABS: CREATININE 0.9 mg/dL (0.55-1.3)
[2020-08-03 15:47] LABS: BILIRUBIN,TOTAL 0.3 mg/dL (0.2-1); TOT PROT 8.3 g/dl (6.4-8.2)
== END 2020-08-03 17:00 | disposition home or self-care (01) ==
LOC: JER 12:31
DX: R10.10 Upper abdominal pain, unspecified (principal)
CPT/HCPCS: 36415; 71046-TC-FY; 76705-TC; 80053; 83690; 85025; 99285-25

== ENCOUNTER 2023-05-05 10:53 | Emergency (ER) | payer OTHER ==
[2023-05-05 11:08] VITALS: RESP 18; BMI 21.8
[2023-05-05] MEDS ORDERED: ACETAMINOPHEN 1000 MG/100 ML BAG IVPB ONE (11:27)
[2023-05-05] MEDS ORDERED: ACETAMINOPHEN INJECTION 100 ML IVPB ONE (11:31)
[2023-05-05] MEDS ORDERED: SODIUM CHLORIDE 1,000 ML IV STA (11:31)
[2023-05-05] MEDS ORDERED: FAMOTIDINE 20 MG/50 ML IVPB 20 MG/50 ML MG IVPB ONE ×2 (11:32→11:58)
[2023-05-05 11:52] LABS: HEMATOCRIT 43.4 % (35.4-49); HEMOGLOBIN 13.9 G/dL (11.7-16.9); MCH 26.8 pg (25.7-33.7); MEAN CELL VOLUME 83.8 fl (80-96); MEAN PLT VOLUME 8.8 fl (7.5-11.1); PLATELET COUNT 215.3 10^3/uL (134-434); RBC 5.18 10^6/uL (4.00-5.60); RDW 14.5 % (11.9-15.9); WHITE BLOOD COUNT 16.1 10^3/uL (4.0-10.8)
[2023-05-05 12:16] LABS: ALBUMIN 4.3 g/dl (3.4-5.0); BILIRUBIN,TOTAL 0.8 mg/dl (0.2-1); CALCIUM 9.4 mg/dl (8.5-10.1); CREATININE 1.1 mg/dl (0.6-1.3); POTASSIUM 4.1 mmol/L (3.5-5.1); TOT PROT 7.1 g/dl (6.4-8.2)
[2023-05-05] MEDS ORDERED: PANTOPRAZOLE SODIUM 40 MG VIAL IVPUSH ONE (15:30)
[2023-05-05] MEDS ORDERED: oxyCODONE HCL 5 MG TABLET PO ONE (15:30)
[2023-05-05] MEDS ORDERED: oxyCODONE HCL 5 MG TABLET ONE (15:51)
[2023-05-05] MEDS ORDERED: PANTOPRAZOLE SODIUM 40 MG VIAL ONE (15:51)
[2023-05-05 17:36] VITALS: BP 126/72; PULSE 80; TEMP 98.7
== END 2023-05-05 17:43 | disposition home or self-care (01) ==
LOC: FER 10:53
PROC: 3E033GC Introduction of Other Therapeutic Substance into Peripheral Vein, Percutaneous Approach (ICD-10-PCS; principal; 2023-05-05)
PROC: 3E033GC Introduction of Other Therapeutic Substance into Peripheral Vein, Percutaneous Approach (ICD-10-PCS; 2023-05-05)
PROC: 3E033NZ Introduction of Analgesics, Hypnotics, Sedatives into Peripheral Vein, Percutaneous Approach (ICD-10-PCS; 2023-05-05)
DX: K52.9 Noninfective gastroenteritis and colitis, unspecified (principal); R07.9 Chest pain, unspecified; R06.02 Shortness of breath; R10.10 Upper abdominal pain, unspecified; R11.10 Vomiting, unspecified
CPT/HCPCS: 36415; 71046-TC-FY; 71260-TC; 74177-TC; 80053; 85027; 93005; 99285-25; Q9967